=== PATIENT | male | born 1980 | race Caucasian/White ===

== ENCOUNTER 2020-06-06 06:44 | Emergency (ER) | payer OTHER ==
[~2020-06-06] VITALS: Ht 177.8 cm; Wt 95.6 kg
[2020-06-06 06:46] VITALS: BP 126/79
[2020-06-06] MEDS ORDERED: CEFTRIAXONE 1,000 MG ONE (07:14)
[2020-06-06] MEDS ORDERED: CEFTRIAXONE 1,000 MG IM ONE (07:30)
--- NOTE | 2020-06-06 07:40 | NUR ---
Patient given discharge and medication instructions and they have confirmed that they understand the instructions. Patient ambulatory with steady gait.
== END 2020-06-06 07:42 | disposition home or self-care (01) ==
LOC: ED 07:12
DX: L03.124 Acute lymphangitis of left upper limb (principal)
CPT/HCPCS: 96372; 99283; J0696